=== PATIENT | male | born 1965 | race Caucasian/White ===

== ENCOUNTER → 2017-05-09 | Outpatient (CLI) | payer OTHER ==
[2015-12-15 15:35] VITALS: BP 133/89
== END ==
LOC: LAB 08:09
DX: E78.00 Pure hypercholesterolemia, unspecified (principal)

== ENCOUNTER → 2018-04-30 | Outpatient (CLI) | payer OTHER ==
[2015-12-15 15:35] VITALS: BP 133/89
[2018-04-30 09:54] LABS: BUN/CREATININE RATIO 24.2 (6.0-26.0); CALCIUM 8.7 mg/dL (8.4-10.2); POTASSIUM 4.2 mmol/L (3.6-5.0); TOTAL BILIRUBIN 0.5 mg/dL (0.2-1.3); TOTAL PROTEIN 7.3 g/dL (6.3-8.2)
== END ==
LOC: LAB 08:36
PROVIDERS: Family Medicine
DX: Z12.5 Encounter for screening for malignant neoplasm of prostate (principal); Z13.1 Encounter for screening for diabetes mellitus; E78.5 Hyperlipidemia, unspecified

== ENCOUNTER → 2018-06-15 | Outpatient (CLI) | payer OTHER ==
[2015-12-15 15:35] VITALS: BP 133/89
== END ==
LOC: RAD 15:57
DX: M25.511 Pain in right shoulder (principal)

== ENCOUNTER → 2018-07-14 | Outpatient (CLI) | payer OTHER ==
[2015-12-15 15:35] VITALS: BP 133/89
== END ==
LOC: LAB 16:23
DX: R30.0 Dysuria (principal); R10.9 Unspecified abdominal pain

== ENCOUNTER → 2018-07-15 | Outpatient (CLI) | payer OTHER ==
[2015-12-15 15:35] VITALS: BP 133/89
== END ==
LOC: CARDLAB 09:01 → CARDREHAB 15:42
DX: G47.33 Obstructive sleep apnea (adult) (pediatric) (principal); R06.83 Snoring; G47.34 Idiopathic sleep related nonobstructive alveolar hypoventilation; E66.01 Morbid (severe) obesity due to excess calories; Z68.39 Body mass index [BMI] 39.0-39.9, adult
CPT/HCPCS: G0399

== ENCOUNTER 2018-08-27 16:00 | Outpatient (RCR) | payer OTHER ==
[2015-12-15 15:35] VITALS: BP 133/89
== END 2018-09-28 | disposition home or self-care (01) ==
LOC: PT
DX: M25.511 Pain in right shoulder (principal)

== ENCOUNTER → 2018-09-14 | Day surgery (SDC) | payer OTHER ==
[2015-12-15 15:35] VITALS: BP 133/89
== END ==
LOC: MSO 07:12
DX: Z12.11 Encounter for screening for malignant neoplasm of colon (principal); F41.9 Anxiety disorder, unspecified; E66.9 Obesity, unspecified; Z79.899 Other long term (current) drug therapy
CPT/HCPCS: 00812; J2704; J3010; J7120

== ENCOUNTER → 2019-01-21 | Outpatient (CLI) | payer OTHER ==
[2015-12-15 15:35] VITALS: BP 133/89
== END ==
LOC: RAD 14:57
DX: M47.816 Spondylosis without myelopathy or radiculopathy, lumbar region (principal); M41.86 Other forms of scoliosis, lumbar region

== ENCOUNTER 2019-04-02 15:30 | Outpatient (RCR) | payer OTHER ==
[2015-12-15 15:35] VITALS: BP 133/89
== END 2019-04-02 16:00 | disposition still patient (30) ==
LOC: PT 15:30
DX: M54.9 Dorsalgia, unspecified (principal)

== ENCOUNTER → 2019-09-20 | Outpatient (CLI) | payer OTHER ==
[2015-12-15 15:35] VITALS: BP 133/89
[2019-09-20 09:00] LABS: POTASSIUM 4.5 mmol/L (3.5-5.1)
[2019-09-20 09:01] LABS: ALBUMIN 4.3 g/dL (3.5-5.0)
[2019-09-20 09:02] LABS: CALCIUM 9.6 mg/dL (8.3-10.5)
[2019-09-20 09:03] LABS: TOTAL PROTEIN 7.5 g/dL (6.4-8.3)
[2019-09-20 09:05] LABS: TOTAL BILIRUBIN 0.8 mg/dL (0.2-1.2)
== END ==
LOC: LAB 08:35
PROVIDERS: Family Medicine
DX: Z12.5 Encounter for screening for malignant neoplasm of prostate (principal); Z13.1 Encounter for screening for diabetes mellitus; E78.5 Hyperlipidemia, unspecified

== ENCOUNTER → 2019-10-08 | Outpatient (CLI) | payer OTHER ==
[2015-12-15 15:35] VITALS: BP 133/89
[2019-10-08 15:40] LABS: URINE APPEARANCE CLEAR; URINE BILIRUBIN NEGATIVE (NEGATIVE); URINE BLOOD TRACE (NEGATIVE); URINE COLOR YELLOW; URINE GLUCOSE NEGATIVE (NEGATIVE); URINE KETONE NEGATIVE (NEGATIVE); URINE LEUKOCYTE ESTERASE NEGATIVE (NEGATIVE); URINE NITRATE NEGATIVE (NEGATIVE); URINE PROTEIN(semi-quant) TRACE mg/dL (NEGATIVE); URINE UROBILINOGEN NORMAL (NORMAL); URINE WBC 0-1 /hpf (0-3)
== END ==
LOC: LAB 14:48
PROVIDERS: Family Medicine
DX: I10 Essential (primary) hypertension (principal); N52.9 Male erectile dysfunction, unspecified; G47.33 Obstructive sleep apnea (adult) (pediatric)

== ENCOUNTER → 2020-09-18 | Outpatient (CLI) | payer OTHER ==
[2015-12-15 15:35] VITALS: BP 133/89
[2020-09-18 09:54] LABS: ALBUMIN 4.4 g/dL (3.5-5.0); POTASSIUM 4.3 mmol/L (3.5-5.1)
[2020-09-18 09:56] LABS: CALCIUM 8.8 mg/dL (8.3-10.5)
[2020-09-18 09:57] LABS: TOTAL PROTEIN 7.6 g/dL (6.4-8.3)
[2020-09-18 09:59] LABS: TOTAL BILIRUBIN 0.6 mg/dL (0.2-1.2)
== END ==
LOC: LAB 09:22
PROVIDERS: Family Medicine
DX: E78.00 Pure hypercholesterolemia, unspecified (principal)

== ENCOUNTER → 2020-09-28 | Outpatient (CLI) | payer OTHER ==
[2015-12-15 15:35] VITALS: BP 133/89
== END ==
LOC: AMSURD 11:29
DX: I10 Essential (primary) hypertension (principal)

== ENCOUNTER → 2020-10-26 | Outpatient (CLI) | payer OTHER ==
[2015-12-15 15:35] VITALS: BP 133/89
== END ==
LOC: RAD 08:00
DX: E78.00 Pure hypercholesterolemia, unspecified (principal); Z82.49 Family history of ischemic heart disease and other diseases of the circulatory system

== ENCOUNTER → 2020-11-03 | Outpatient (CLI) | payer OTHER ==
[2015-12-15 15:35] VITALS: BP 133/89
== END ==
LOC: CARDLAB 11-01 13:28 → CARDREHAB 07:45
DX: I10 Essential (primary) hypertension (principal)
CPT/HCPCS: A9500

== ENCOUNTER → 2020-12-29 | Outpatient (CLI) | payer OTHER ==
[2015-12-15 15:35] VITALS: BP 133/89
[2020-12-29 13:50] LABS: ALBUMIN 4.3 g/dL (3.5-5.0)
[2020-12-29 13:53] LABS: TOTAL PROTEIN 7.5 g/dL (6.4-8.3)
[2020-12-29 13:55] LABS: TOTAL BILIRUBIN 0.7 mg/dL (0.2-1.2)
[2020-12-29 13:58] LABS: DIRECT BILIRUBIN 0.2 mg/dL (0.0-0.5)
== END ==
LOC: LAB 07:08
PROVIDERS: Family Medicine
DX: E78.00 Pure hypercholesterolemia, unspecified (principal)

== ENCOUNTER → 2022-01-11 | Outpatient (CLI) | payer OTHER ==
[2022-01-11 10:47] LABS: ALBUMIN 4.4 g/dL (3.5-5.0); POTASSIUM 4.3 mmol/L (3.5-5.1)
[2022-01-11 10:48] LABS: CALCIUM 9.2 mg/dL (8.3-10.5)
[2022-01-11 10:50] LABS: TOTAL PROTEIN 7.5 g/dL (6.4-8.3)
[2022-01-11 10:51] LABS: TOTAL BILIRUBIN 0.7 mg/dL (0.2-1.2)
== END ==
LOC: LAB 07:16
PROVIDERS: Family Medicine
DX: Z12.5 Encounter for screening for malignant neoplasm of prostate (principal); Z13.6 Encounter for screening for cardiovascular disorders; I10 Essential (primary) hypertension; E78.00 Pure hypercholesterolemia, unspecified

== ENCOUNTER → 2024-04-23 | Outpatient (CLI) | payer OTHER | LOC: LAB 07:01 | PROVIDERS: Family Medicine | DX: Z12.5 Encounter for screening for malignant neoplasm of prostate (principal); Z13.1 Encounter for screening for diabetes mellitus; I10 Essential (primary) hypertension; E78.00 Pure hypercholesterolemia, unspecified; E78.2 Mixed hyperlipidemia ==